=== PATIENT | female | born 1995 | race Two or more races ===

== ENCOUNTER 2022-01-05 09:07 | Emergency (ER) | payer OTHER ==
[~2022-01-05] VITALS: Ht 160 cm; Wt 66.7 kg
[2022-01-05] MEDS ORDERED: TUSSI PRES-B L480 ML PO (10:28)
[2022-01-05] MEDS ORDERED: OSEL75CA PO (10:28)
[2022-01-05] MEDS ORDERED: FLONASE ALLERG9.9 ML NASAL (10:28)
== END 2022-01-05 10:38 | disposition home or self-care (01) ==
LOC: ER 09:07
DX: J10.1 Influenza due to other identified influenza virus with other respiratory manifestations (principal); Z88.6 Allergy status to analgesic agent

== ENCOUNTER 2022-07-11 10:21 | Outpatient (CLI) | payer OTHER ==
[~2022-07-11 10:21] MED LIST: FLONASE ALLERG9.9 ML NASAL; OSEL75CA PO; TUSSI PRES-B L480 ML PO
== END 2022-07-11 10:22 | disposition home or self-care (01) ==
LOC: LAB 10:21
PROVIDERS: ATTEND Specialist
DX: D50.9 Iron deficiency anemia, unspecified (principal); E03.9 Hypothyroidism, unspecified; E78.3 Hyperchylomicronemia; A64 Unspecified sexually transmitted disease; K73.9 Chronic hepatitis, unspecified